=== PATIENT | female | born 1985 | race African-American/Black ===

== ENCOUNTER 2019-11-10 13:01 | Emergency (ER) | payer MEDICAID ==
[~2019-11-10] VITALS: Ht 160 cm; Wt 83.0 kg
[2019-11-10] MEDS ORDERED: SILVER SULFADIAZINE 1% CREAM 50GM TOP STA (15:05)
[2019-11-10] MEDS ORDERED: IBUPROFEN 800MG TABLET PO ONE (15:15)
[2019-11-10] MEDS ORDERED: TETANUS, DIPHTHERIA, PERTUSSIS VAC/PF 0.5ML (>7YR OLD) IM ONE (15:15)
[2019-11-10 16:23] VITALS: BP 114/68
== END 2019-11-10 16:25 | disposition home or self-care (01) ==
LOC: ER 13:01
DX: J06.9 Acute upper respiratory infection, unspecified (principal); T22.051A Burn of unspecified degree of right shoulder, initial encounter; X16.XXXA Contact with hot heating appliances, radiators and pipes, initial encounter; Y93.89 Activity, other specified; Y92.89 Other specified places as the place of occurrence of the external cause; Z23 Encounter for immunization
CPT/HCPCS: 90471; 90715; 99283

== ENCOUNTER 2020-01-26 06:41 | Emergency (ER) | payer MEDICAID ==
[~2020-01-26] VITALS: Ht 167.6 cm; Wt 86.0 kg
[2020-01-26] MEDS ORDERED: FAMOTIDINE 20MG TABLET PO ONE (07:45)
[2020-01-26] MEDS ORDERED: DIPHENHYDRAMINE 25MG CAPSULE PO ONE (07:45)
[2020-01-26 07:53] VITALS: BP 112/68
== END 2020-01-26 08:07 | disposition home or self-care (01) ==
LOC: ER 06:41
DX: L23.9 Allergic contact dermatitis, unspecified cause (principal)
CPT/HCPCS: 99283; Q0163

== ENCOUNTER 2020-11-25 16:16 | Emergency (ER) | payer MEDICAID ==
[~2020-11-25] VITALS: Ht 160 cm; Wt 80.0 kg
[2020-11-25 16:42] VITALS: BP 133/72
[2020-11-25] MEDS ORDERED: CEFTRIAXONE 1 G PREMIX 50 ML IV ONE (17:00)
[2020-11-25] MEDS ORDERED: IBUPROFEN 400MG TABLET PO ONE (17:15)
[2020-11-25] MEDS ORDERED: ACETAMINOPHEN 325MG TABLET PO ONE (17:15)
[2020-11-25 18:59] LABS: CLARITY URINE CLOUDY (CLEAR); COLOR URINE YELLOW (YELLOW); KETONES URINE TRACE (NEGATIVE); LEUKOCYTE ESTERASE URINE 1+ (NEGATIVE); NITRITE URINE NEGATIVE (NEGATIVE); OCCULT BLOOD URINE NEGATIVE (NEGATIVE); PROTEIN URINE NEGATIVE (NEGATIVE); SPECIFIC GRAVITY URINE 1.029 (1.005-1.030)
[2020-11-25 19:31] LABS: EOSINOPHILS % 0.2 % (0.0-5.0); HEMATOCRIT. 37.6 % (36.0-48.0); HEMOGLOBIN. 12.6 g/dL (12.0-16.0); MEAN CORPUSCULAR VOLUME 92.2 fL (81.0-99.0); MEAN PLATELET VOLUME 6.7 fl (7.4-10.4); NEUTROPHILS % 55.8 % (40.0-76.0); PLATELET 324 x1000/uL (130-400); RED BLOOD CELL COUNT 4.08 mill/uL (4.2-5.4)
[2020-11-25 19:42] LABS: CHLORIDE 105 mEq/L (98-107)
[2020-11-25 19:45] LABS: HCG SCREEN NEGATIVE
== END 2020-11-25 22:01 | disposition home or self-care (01) ==
LOC: ER 16:16
DX: M79.89 Other specified soft tissue disorders (principal); F15.10 Other stimulant abuse, uncomplicated; J45.909 Unspecified asthma, uncomplicated; F14.10 Cocaine abuse, uncomplicated; F12.10 Cannabis abuse, uncomplicated; F17.290 Nicotine dependence, other tobacco product, uncomplicated; Z98.890 Other specified postprocedural states
CPT/HCPCS: 36415; 71045; 73120; 80048; 80076; 81003; 81025; 83605; 84145; 84484; 84703; 85025; 87040; 87086; 93971; 96374; 99285; 99406; J0696; Z7610